=== PATIENT | male | born 1985 | race Hispanic/Latino ===

== ENCOUNTER 2019-12-22 19:44 | Emergency (ER) | payer SELFPAY ==
[2019-12-22 20:18] LABS: BASOPHILS % (AUTO) 0.5 % (0.0-5.0); EOSINOPHILS % (AUTO) 0.6 % (0.0-8.0); HEMATOCRIT 42.6 % (42-54); LYMPHOCYTES % (AUTO) 29.5 % (21.0-51.0); MEAN CORPUSCULAR HGB CONC 35.2 g/dL (32.0-36.0); MEAN CORPUSCULAR VOLUME 90.8 fL (79-99); MONOCYTES % (AUTO) 6.1 % (3.0-13.0); NEUTROPHILS % (AUTO) 62.8 % (40.0-77.0); PLATELET COUNT (AUTO) 196 K/uL (130-400); RED BLOOD CELL COUNT(AUTO) 4.69 MIL/uL (4.50-6.20); RED CELL DISTRIBUTION WIDTH 12.2 % (11.0-15.5)
[2019-12-22 20:30] LABS: CARBON DIOXIDE 19 mmol/L (21-32); CHLORIDE 97 mmol/L (101-111); CREATININE 1.2 mg/dL (0.5-1.5); GLOMERULAR FILTR. RATE CALC 75 mL/min (>60); GLUCOSE,RANDOM 127 mg/dL (70-105); POTASSIUM 3.1 mmol/L (3.5-5.1); SODIUM SERUM 136 mmol/L (136-145); UREA NITROGEN, BLOOD 8 mg/dL (7-18)
[2019-12-22 20:32] LABS: INR 0.99 (0.85-1.15); PARTIAL THROMBOPLASTIN TIME 28.1 SEC (26.3-35.5); PROTHROMBIN TIME 10.7 SEC (9.6-11.6)
[2019-12-22 20:34] LABS: ALANINE AMINOTRANSFERASE 15 U/L (12-78); ALBUMIN 4.2 g/dL (3.5-5.0); ALCOHOL, BLOOD < 3 mg/dL (0-10); ASPARTATE AMINOTRANSFERASE 14 U/L (10-37); BILIRUBIN,TOTAL 0.6 mg/dL (0.2-1.0); CREATINE KINASE, TOTAL 110 U/L (21-232); SALICYLATE 7.4 mg/dL (2.8-20.0); TOTAL PROTEIN, SERUM 7.5 g/dL (6.0-8.3)
[2019-12-22] MEDS ORDERED: ASPIRIN 325 MG TABLET ONE (20:36)
[2019-12-22 20:47] LABS: ACETAMINOPHEN < 1 mcg/mL (10-29)
[2019-12-22 20:55] LABS: APPEARANCE,URINE Clear (CLEAR); BILIRUBIN,URINE Negative (NEGATIVE); COLOR,URINE Yellow (YELLOW); GLUCOSE, URINE (UA) Negative (NEGATIVE); KETONES,URINE Trace mg/dL (NEGATIVE); LEUKOCYTE ESTERASE ,URINE Trace (NEGATIVE); NITRATE,URINE Negative (NEGATIVE); OCCULT BLOOD,URINE Large (NEGATIVE); PROTEIN,URINE Trace mg/dL (NEGATIVE)
[2019-12-22 21:02] LABS: AMPHET/METH SCREEN,URINE NEGATIVE (NEGATIVE); BARBITURATE SCREEN, URINE NEGATIVE (NEGATIVE); BENZODIAZEPINES SCREEN,URINE NEGATIVE (NEGATIVE); CANNABINOID SCREEN,URINE POSITIVE (NEGATIVE); COCAINE SCREEN,URINE NEGATIVE (NEGATIVE); OPIATE SCREEN,URINE NEGATIVE (NEGATIVE); PHENCYCLIDINE SCREEN,URINE NEGATIVE (NEGATIVE)
[2019-12-22 21:05] LABS: BACTERIA,URINE Few /HPF (None Seen); MUCUS,URINE Many LPF (None Seen); SQUAMOUS EPITHELIAL CELL,UR Few /HPF (0-2)
[2019-12-22] MEDS ORDERED: POTASSIUM BICARB/CIT AC 25 MEQ TABLET.EFF ONE (21:27)
== END 2019-12-22 21:36 ==
LOC: EDH 19:44
DX: R41.82 Altered mental status, unspecified (principal); F12.10 Cannabis abuse, uncomplicated; R03.0 Elevated blood-pressure reading, without diagnosis of hypertension; E87.6 Hypokalemia
CPT/HCPCS: 36415; 80053; 80305; 81001; 82550; 84484; 85025; 85610; 85730; 93005; 99284; G0481